=== PATIENT | female | born 1985 | race Caucasian/White ===

== ENCOUNTER 2016-11-03 07:23 | Emergency (ER) | payer OTHER ==
[~2016-11-03 07:23] MED LIST: CLARITIN 10MG T10 MG PO; ZOLOFT50 MG PO
== END 2016-11-03 09:50 | disposition home or self-care (01) ==
LOC: ER1 07:23
DX: R10.9 Unspecified abdominal pain (principal); R11.2 Nausea with vomiting, unspecified; F17.200 Nicotine dependence, unspecified, uncomplicated
CPT/HCPCS: 36415; 74000; 81001; 84703; 96374; 96375; 99284; J1885; J2405